=== PATIENT | male | born 1975 | race Caucasian/White ===

== ENCOUNTER → 2020-09-22 | Outpatient (CLI) | payer OTHER ==
--- NOTE | 2020-09-24 21:54 | XR ---
EXAMINATION TYPE: XR knee 4V LT DATE OF EXAM: 09/22/2020 COMPARISON: NONE HISTORY: 45-year-old male M25.562, left knee pain and swelling TECHNIQUE: 4 views FINDINGS: Small knee joint effusion. Minimal marginal spurring within the 3 compartments. Extensor mechanism is intact. Slight lateral translation right patella. Overall patellofemoral compartment joint spaces ar e maintained on the merchant's view. No acute fracture, subluxation, or dislocation. IMPRESSION: 1. Very mild tricompartmental degenerative spurring. Small knee joint effusion may be reactive. 2. 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
== END | disposition home or self-care (01) ==
LOC: RADXRMAIN 16:06
PROVIDERS: ATTEND Family Medicine
DX: M25.862 Other specified joint disorders, left knee (principal)